=== PATIENT | female | born 1995 | race Caucasian/White ===

== ENCOUNTER 2023-05-06 04:37 | Outpatient (CLI) | payer BC, SELFPAY ==
[2023-05-06 16:47] LABS: Panorama Kit Sent via Fed Ex
[2023-05-06 16:50] LABS: Abs Immature Grans 0.02 10^3/uL (0.0-0.06); Absolute Basophil Count 0.01 10^3/uL (0.0-0.2); Absolute Eosinophil Count 0.15 10^3/uL (0.0-0.7); Absolute Lymphocyte Count 1.75 10^3/uL (1.2-3.4); Absolute Monocyte Count 0.32 10^3/uL (0.1-0.8); Absolute Neutrophil Count 3.94 10^3/uL (1.2-6.7); Basophils % 0.2; Eosinophils % 2.4; HCT 36.8 % (36.0-46.0); HGB 12.9 g/dL (11.2-15.7); Immature Grans % 0.3; Lymphocytes % 28.3; MCH 29.7 pg (27.0-33.0); MCHC 35.1 % (32.0-36.0); MCV 85 fL (80-95); MPV 8.9 fL (8.0-11.0); Monocytes % 5.2; Neutrophils % 63.6; Platelet Count 188 10^3/uL (130-400); RBC 4.34 10^6/uL (3.93-5.22); RDW 12.1 % (11.7-14.6); RDW-SD 37.4 fL; WBC 6.19 10^3/uL (4.4-10.8)
[2023-05-06 19:32] LABS: TSH (W/Ref FT4) 1.35 uIU/mL (0.36-3.74)
[2023-05-07 20:04] LABS: Hepatitis B Surface Ag Negative (Negative)
[2023-05-07 20:32] LABS: HIV-1/2 Ag & Ab Screen Negative (Negative)
[2023-05-07 20:34] LABS: Hepatitis C Ab w Rflx HCV PCR Negative (Negative)
[2023-05-10 11:00] LABS: Varicella IgG Antibody Positive (See Note)
[2023-05-10 11:02] LABS: Rubella IgG Ab (UVM) Positive (See Note)
[2023-05-10 20:08] LABS: Syphilis IgG w/Reflex Nonreactive (Nonreactive)
[2023-05-11 13:58] LABS: Specimen WB Whole Blood
[2023-05-17 12:32] LABS: Result Summary NEGATIVE; Specimen WB Whole Blood
== END 2023-05-06 04:38 | disposition home or self-care (01) ==
PROVIDERS: Advanced Practice Midwife; Visit Provider Advanced Practice Midwife
DX: Z34.91 Encounter for supervision of normal pregnancy, unspecified, first trimester; F41.9 Anxiety disorder, unspecified
CPT/HCPCS: 36415; 81220; 81222; 81329; 86787; 86803; 86850; 86900; 86901; 87340; 87389; 84443; 85025; 86762; 86780

== ENCOUNTER 2023-05-06 15:59 | Outpatient (REF) | payer BC, SELFPAY ==
[2023-05-06 19:23] LABS: *AMPHETAMINES SCREEN URINE Negative (Negative); *BARBITURATES SCREEN URINE Negative (Negative); *BENZODIAZEPINES SCREEN URINE Negative (Negative); Cannabinoids THC Negative (Negative); Cocaine Screen,Urine Negative (Negative); METHADONE URINE SCREEN Negative (Negative); OPIATES URINE SCREEN Negative (Negative)
[2023-05-06 19:24] LABS: Tricyclic Antidepressants Negative (Negative)
[2023-05-13 08:32] LABS: Buprenorphine Negative ng/mL (Cutoff: 5.0); Norbuprenorphine Negative ng/mL (Cutoff: 2.5)
== END 2023-05-06 16:00 | disposition home or self-care (01) ==
LOC: LBN 15:59
PROVIDERS: Visit Provider Advanced Practice Midwife
DX: Z34.91 Encounter for supervision of normal pregnancy, unspecified, first trimester (principal)
CPT/HCPCS: 80307; 80348; 87086

== ENCOUNTER → 2023-07-07 01:48 | Outpatient (CLI) | payer BC, SELFPAY ==
--- NOTE | 2023-07-07 07:45 | DI.US_ITS ---
Exam(s) US OB 2-3 TRIMESTER W MOD EXAM: US OB 2-3 TRIMESTER W MOD CLINICAL HISTORY: ,z34.90. TECHNIQUE: Transabdominal obstetrical ultrasound performed. COMPARISON: US US OB 1ST TRIMESTER from 05/12/2023 FINDINGS: Number of fetuses: One. position: Vertex. spine is anterior. Placental grade: 1 Placental location: Anterior no evidence of previa. BIOMETRIC DATA: BPD: 49mm = 20+ 6 weeks HC: 193mm = 21+4 weeks AC: 160mm = 21+1 weeks FL: 33mm = 20+ 3 weeks Cisterna Magna: 3 mm Cerebellum: 2 cm EFW: 381 grms 69% Composite Age: 21+ 0 weeks EDC by US: 17 November 2023 Heart Rate: 151BPM Amniotic fluid : Amount of fluid is within normal limits. ANATOMICAL SURVEY: Four-chambered heart: Unremarkable. LVOT: Unremarkable. RVOT: Unremarkable. Left-sided stomach: Unremarkable. urinary bladder: Unremarkable. Bilateral kidneys: Unremarkable. Three-vessel cord: Unremarkable. Cord insertion: Unremarkable. Posterior fossa:Unremarkable. ventricles: Unremarkable. nose: Unremarkable. lips: Unremarkable. palate: Unremarkable. spine: Suboptimal visualization of the cervical and thoracic region. Two arms and two legs: Unremarkable. IMPRESSION: 1. Single live intrauterine gestation with composite age 21+ 0 weeks. 2. Normal anatomic survey. Spine suboptimally visualized. The patient is scheduled to return for 13 June 2023 for additional spine imaging. DATA REPOSITORY:
== END ==
PROVIDERS: Visit Provider Advanced Practice Midwife
DX: Z34.92 Encounter for supervision of normal pregnancy, unspecified, second trimester (principal)
CPT/HCPCS: 76805

== ENCOUNTER 2023-09-02 05:02 | Outpatient (CLI) | payer BC, SELFPAY ==
[2023-09-02 10:19] LABS: HCT 35.9 % (36.0-46.0); HGB 12.3 g/dL (11.2-15.7); MCH 31.2 pg (27.0-33.0); MCHC 34.3 % (32.0-36.0); MCV 91 fL (80-95); MPV 9.1 fL (8.0-11.0); Platelet Count 171 10^3/uL (130-400); RBC 3.94 10^6/uL (3.93-5.22); RDW-SD 43.1 fL; WBC 7.91 10^3/uL (4.4-10.8)
[2023-09-02 10:26] LABS: Glucose,1 Hr (Glucola) 111 mg/dL (80-140)
== END 2023-09-02 05:03 | disposition home or self-care (01) ==
LOC: LBO 05:02
PROVIDERS: Visit Provider Advanced Practice Midwife
DX: Z34.91 Encounter for supervision of normal pregnancy, unspecified, first trimester (principal)
CPT/HCPCS: 36415; 82950; 85027

== ENCOUNTER 2023-10-03 10:11 | Outpatient (CLI) | payer BC, SELFPAY ==
[2023-10-03 10:22] VITALS: BP 106/52; PULSE 65; TEMP 36.6
[2023-10-03 10:37] VITALS: BP 106/52; PULSE 65
--- NOTE | 2023-10-03 11:21 | W.OBNST ---
Date of service: 10/03/23 Time of Service: 11:21 NST Evaluation Reason for NST Reasons for Nonstress Test: OTHER, SEE COMMENT Reason for NST Other: Well-being Gestational Age Gestational Age in Weeks and Days: 33 Weeks and 0Days Test and Monitor Explained Test/Monitor Explained: Test Explained, Monitor Explained and Patient Verbalized Understanding Vital Signs Blood Pressure: 106/52 Pulse: 65 Temperature: 97.9 F Urine Results Urine Protein: Negative Urine Ketones: Negative Urine Glucose: Negative Urine Blood: Negative NST Information Date on Monitor: 10/03/23 Time on Monitor: 10:38 Date off Monitor: 10/03/23 Time off Monitor: 11:05 Total Time on Monitor: 27 NST Interventions: PO Hydration Contraction Frequency: None NST Evaluation Patient States Movement: Present FHR Baseline: 125 Variability: Moderate 6-25 bpm Accelerations: 15x15 Decelerations: None NST Results: Reactive Note Ultrasound Done: N/A. NST Note Note: NST is reactive and reassuring. No evidence of PTL. discussed upper mid abdominal pain and diastasis. Self help measures discussed. to keep next scheduled or call CNM PRPrasad. SAMEER NST Reviewed and Verified by: Ciara Lee
[2023-10-03 11:22] VITALS: BP 106/52; PULSE 65; TEMP 36.6
== END 2023-10-03 11:10 ==
LOC: BCD 10:12 → OBS 10:18
PROVIDERS: PCP Advanced Practice Midwife; Visit Provider Advanced Practice Midwife
DX: O26.893 Other specified pregnancy related conditions, third trimester (principal); R10.9 Unspecified abdominal pain; Z3A.33 33 weeks gestation of pregnancy
CPT/HCPCS: 59025

== ENCOUNTER 2023-10-28 15:49 | Outpatient (REF) | payer BC, SELFPAY | END 2023-10-28 15:50 | disposition home or self-care (01) | LOC: LBN 15:49 | PROVIDERS: PCP Advanced Practice Midwife; Visit Provider Advanced Practice Midwife | DX: Z34.93 Encounter for supervision of normal pregnancy, unspecified, third trimester (principal); Z3A.36 36 weeks gestation of pregnancy | CPT/HCPCS: 87081 ==

== ENCOUNTER 2023-11-15 23:36 | Inpatient (IN) | payer BC, SELFPAY ==
[2023-11-15 22:20] VITALS: BP 108/66; PULSE 65; TEMP 36.7
[2023-11-15 22:21] VITALS: BP 108/66; PULSE 65; TEMP 36.7
[2023-11-15] MEDS: Lactated Ringers 500 ML 1000 ML IV (22:45)
--- NOTE | 2023-11-15 23:39 | HPE_ITS ---
Date of service: 11/15/23 Time of Service: 23:40 Assessment and Plan Assessment and plan (1) Spontaneous onset of labor: Status: Acute Assessment and plan: Admit to the Center. Comfort measures. Lacy is receiving support from her . She is planning to have a tech writer for support in labor. Anticipate . OB-HPI Labor/Delivery History of Present Illness Reason for Visit: NST Chief Complaint: Uterine Contractions (vomiting). KUMAR Calculator Estimated Delivery Date Method Current WG Current Estimate 11/21/23 LMP (Certain) 39w 1d Other Estimates 11/18/23 Ultrasound #1 39w 4d Comments: Lacy reports strong regular contractions at home. 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 Anxiety- attends therapy. No medications currently, TSH=nml 2. Exercise induced Asthma- uses inhaler occasional 3. Panorama: low risk x5 male , CF & SMA- neg 4. Constipation in the morning, loose stools x3. was taking benefiber daily, switched to psyllium PRN. Colace recommended daily. 5. Hemorrhoids - used preparation H cream. Assessment: History Reviewed & Current [facility] All Active Problems (Updated 11/15/23 @ 23:44 by Ciara Franklin CNM) Spontaneous onset of labor (Acute) Hemorrhoids during (Acute) Pelvic floor weakness in female (Acute) Pelvic pain (Acute) (Acute) Delayed menses (Acute) Asthma (Chronic) exercise induced Medical History Anxiety Sees counselor regularly, no meds Surgical History History of ankle surgery S/p injury 02/2019 [facility] [place] Revision 05/01/22 Ricky Family History (Updated 05/06/23 @ 15:23 by Ciara Franklin CNM) Father Cancer bladder Skin cancer Parkinson disease Menieres disease Afib Mother Heart disease ? arrhythmia Paternal Grandmother Thyroid disease Osteoporosis Brother Asthma Social History Smoking/Tobacco Use Status: Never Smoking risk assessment performed?: Yes Alcohol Intake: current Alcohol Intake frequency: a few times a week Drug use: Rarely Substance use type: marijuana current occupation: environmental [employer] Sexually active: Yes Do you think of yourself as: straight/heterosexual Current gender identity: female Female Reproductive History Menstrual control method: none History History 1 Para 0 Hx # Term Pregnancies 0 Multiple births 0 Hx # Pregnancies 0 Ectopic pregnancies 0 AB induced 0 Hx Number of Living Children 0 AB spontaneous 0 Meds Allergies and Home Medications Allergies Allergy/AdvReac Type Severity Reaction Status Date / Time hydromorphone AdvReac Other (See Unverified 11/10/23 16:00 Comment) Home Medications Medication Instructions Recorded Confirmed Type albuterol sulfate 90 mcg/actuation 2 puff inhalation Q6H PRN 07/13/22 11/10/23 History aerosol inhaler cetirizine 10 mg capsule (Zyrtec) 10 mg PO DAILY PRN 07/13/22 11/10/23 History vits no.126-ferrous fum tab PO QDAY 03/24/23 11/10/23 History 28 mg iron-folic acid 800 mcg tablet (Classic ) calcium carbonate 500 mg PO BID PRN 09/02/23 11/10/23 History witch sanjuana 50 % topical pads 1 pad topical 4-6XD PRN skin 10/21/23 11/10/23 Rx (Tucks (witch sanjuana)) irritation #100 ea docusate sodium 100 mg capsule 100 mg PO DAILY 11/05/23 11/10/23 History (Colace) Exam Physical Exam Vital signs: Temp Pulse BP 98.0 F 65 108/66 11/15/23 22:21 11/15/23 22:21 11/15/23 22:21 Vital Signs Reviewed: Yes Constitutional Constitutional: no acute distress Detailed Labor and Delivery Exam Dilation: 2 Effacement (%): 70 station: -1 Cervix position: anterior Consistency: soft Reis Score: Cervical Points Exam 0 1 2 3 Dilation Closed 1-2cm 3-4 cm 5-6cm Effacement 0-30% 40-50% 60-70% 80% Consistency Firm Medium Soft Station -3 -2 -1,0 +1,+2 Position Posterior Mid Anterior Amniotic Membrane Status: Intact Monitor Mode: External Contraction Frequency(min): every 3-4 Contraction Duration(sec): 60 Contraction Intensity: Moderate/Strong Fetus A Heart Rate Baseline: 132 Monitor Accelerations: 15 X 15 Monitor Decelerations: None Variability: Moderate (6-25 BPM) Presentation: Cephalic Categories: Category I HEENT Exam HEENT Exam: Normal Respiratory Exam Respiratory Exam: Normal Cardiovascular Exam Cardiovascular Exam: Normal Abdominal Exam Abdominal Exam: Normal Exam Exam: Normal Extremities Exam Extremities Exam: Normal Skin Exam Skin Exam: Normal Psychiatric Exam Psychiatric Exam: Normal Risk Assessment Risk for Shoulder Dystocia Historical/Initial OB: NEGATIVE FOR: Pelvic Abnormality, Pre- BMI>30, Previous Shoulder Dystocia or Previous Macrosomia 36 Weeks: NEGATIVE FOR: Current Gestational DM, EFW>4500gms or Maternal Weight Gain>40lbs 40 Weeks: NEGATIVE FOR: EFW> 4500 gms, Maternal Weight Gain >40lb or Post Dates Risk for Pre-Eclampsia Yes, if one or more: NEGATIVE FOR: Hx Pre-E/Gest HTN, Chronic HTN, Multiple Gestation, Pre-gestational DM, Renal Disease, Systemic Lupus or APA Syndrome Yes, if 2 or more: POSITIVE FOR: Nulliparity; NEGATIVE FOR: Age>= 35 yrs, >10yr btwn pregnancies, BMI>30, ethinicty, Mother/Sister w/ Pre-E or Previous IUGR Risk for Post- Hemorrhage Initial: NEGATIVE FOR: Multiple Gestation, Previous PPH, Known Clotting Deficiency, Grand Multiparity or Anticoagulation 36 Weeks: NEGATIVE FOR: Anemia, hgb<10, Low platelets(thrombocytopenia), Gestational HTN or Pre-E, Polyhydraminios or EFW>4500gms 40 Weeks: NEGATIVE FOR: Anemia, hgb<10, Low platelets (thrombocytopenia), Gestation HTN or Pre-E, Polyhydraminios or EFW>4500gms Counseled re: Active Management: Yes Risks Reviewed Risks Reviewed Upon Admission: Yes
--- NOTE | 2023-11-15 23:58 | PDOC.NST_ITS ---
Date of service: 11/15/23 Time of Service: 23:58 NST Evaluation Reason for NST Reasons for Nonstress Test: OTHER, SEE COMMENT Reason for NST Other: Rule out labor Gestational Age Gestational Age in Weeks and Days: 39 Weeks and 2Days Test and Monitor Explained Test/Monitor Explained: Test Explained, Monitor Explained and Patient Verbalized Understanding Vital Signs Blood Pressure: 108/66 Pulse: 65 Temperature: 98.0 F NST Information Date on Monitor: 11/15/23 Time on Monitor: 22:19 Date off Monitor: 11/15/23 Time off Monitor: 22:55 Total Time on Monitor: 36 NST Interventions: None NST Evaluation Patient States Movement: Present FHR Baseline: 120 Variability: Moderate 6-25 bpm Accelerations: 15x15 Decelerations: None NST Results: Reactive Note Ultrasound Done: N/A. NST Note Note: Lacy is at the Center for rule out labor. SVE by RN and she was 2 /70/- 1. Lacy was offered options to stay and await active labor or to return home. She chose to stay as she stated that the transitions between hospital and home were difficult for her. Rest was encouraged and medications for therapeutic rest were also offered. She prefers to try to rest on her own and she was admitted . NST Reviewed and Verified by: Ciara Franklin
[2023-11-16] VITALS (21 sets, daily range): BP systolic 95–127; BP diastolic 56–78; PULSE 53–86; RESP 15–16; TEMP 36.2–37.1; O2SAT 97–98
[2023-11-16 00:02] LABS: HCT 46.6 % (36.0-46.0); HGB 16.1 g/dL (11.2-15.7); MCH 31.8 pg (27.0-33.0); MCHC 34.5 % (32.0-36.0); MCV 92 fL (80-95); MPV 10.3 fL (8.0-11.0); Platelet Count 175 10^3/uL (130-400); RBC 5.07 10^6/uL (3.93-5.22); RDW 13.2 % (11.7-14.6); RDW-SD 43.8 fL; WBC 11.87 10^3/uL (4.4-10.8)
[2023-11-16] MEDS: Ondansetron O.D.T. 4 MG TABEF 8 MG PO (00:25)
--- NOTE | 2023-11-16 06:15 | W.PM.OBNL1 ---
Date of service: 11/16/23 Time of Service: 06:15 Pelvic Exam Dilation: 7 Effacement (%): 100 station: +1 Cervix Position: mid Consistency: soft Vaginal Exam Presentation: Cephalic Contractions Monitor Mode: External Contraction Frequency(min): every 3-4 Contraction Duration(sec): 60 Intensity: Strong Fetus A Monitor: Doppler Heart Rate Baseline: 120 FHR Rhythm: Regular Decelerations: None Amniotic Membrane Status: Intact Assessment and Plan Assessment and plan (1) Spontaneous onset of labor: Status: Acute Assessment and plan: Assisted to hands and knees position on the ball. Lcay is beginning to feel slight rectal pressure. I have explained to her the importance of auscultation with a contraction and she has agreed after this was explained. Anticipate . Objective Abnormal lab results 11/15/23 Range/Units 23:52 WBC 11.87 H (4.4-10.8) 10^3/uL Hgb 16.1 H (11.2-15.7) g/dL Hct 46.6 H (36.0-46.0) % Temp Pulse BP 98.8 F 85 127/78 11/16/23 04:46 11/16/23 04:46 11/16/23 04:46 Laboratory Results WBC 11.87 10^3/uL (4.4-10.8) H 11/15/23 23:52 RBC 5.07 10^6/uL (3.93-5.22) 11/15/23 23:52 Hgb 16.1 g/dL (11.2-15.7) H 11/15/23 23:52 Hct 46.6 % (36.0-46.0) H 11/15/23 23:52 MCV 92 fL (80-95) 11/15/23 23:52 MCH 31.8 pg (27.0-33.0) 11/15/23 23:52 MCHC 34.5 % (32.0-36.0) 11/15/23 23:52 RDW 13.2 % (11.7-14.6) 11/15/23 23:52 Plt Count 175 10^3/uL (130-400) 11/15/23 23:52 MPV 10.3 fL (8.0-11.0) 06/17/24 23:52 ABO/Rh O Positive 11/15/23 23:52 Antibody Screen NEGATIVE 11/15/23 23:52 Subjective Patient Reports: New Complaints Interval history since last seen: Lacy is feeling very tired. She has been ambulating in her room assisted by her liliana Bonnie and her , Kit. She received zofran 8 mg ODT for vomiting with good effect and she agreed to an saline lock and was given an IV bolus of LR 1000cc for hydration. The baby has been assessed by doppler auscultation. On severeal occasions, she has declined auscultation stating that she did not like the aquasonic gel and she did not wish to have the heart auscultated unless it was necessary. Results Hemoglobin/Hematocrit: Hgb 16.1 g/dL (11.2-15.7) H 11/15/23 23:52 Hct 46.6 % (36.0-46.0) H 11/15/23 23:52 Abnormal Lab Findings: Abnormal Labs 11/15/23 23:52 WBC 11.87 H Hgb 16.1 H Hct 46.6 H
[2023-11-16] MEDS: Oxytocin 10 UNITS/ML VIAL IM (09:49)
--- NOTE | 2023-11-16 10:29 | W.OBDELIVERY ---
Date of service: 11/16/23 Time of Service: 10:30 OB Labor/ Delivery Information Baby A Delivery Delivery Method: Spontaneaous Presentation: Cephalic Vertex Position: Right Occipital Anterior Cord Description-Baby A: 3 Vessels Amniotic Fluid: Clear Estimated Blood Loss: 250 Delivery Outcome: Liveborn Transferred: Remains with Mother Note: FHTs 120 by doppler during first stage of labor. FHTs 120 by doppler in second stage. Progressed to full dilation and began pushing. Second stage huddle was done. Spontaneous delivery of male infant delivered in WARD position. Baby was placed on mother's abdomen and dried and stimulated. Spontaneous cry. Cord was clamped and cut by th Theresa. The placenta delivered spontaneously and appears to by intact with a three vessel cord. Pitocin 10 units IM was administered after delivery of the placenta. The perineum was inspected and a second degree laceration was repaired. The baby did breastfeed. After delivery, Mother and baby and father of the baby were stable and bonding well in the delivery room and there were no complications. Providers Nurse Bottoming Room Supervisor: Ciara Franklin Nurse: Liya Butts Nurse: Shea Trevino Labor/Delivery Information Number of Babies in Womb: 1 Steroids Given: None Reason Steroids Not Administered: N/A Group Beta Strep: Negative Antibiotics Administered: No Rubella Status: Immune Blood Type: O+ Varicella Immunity: Immune Born En Route: No Maternal Complications: None Shoulder Dystocia: No Stages of Labor Onset of Labor Date: 11/15/23 Complete Dilatation Date: 11/16/23 Complete Dilatation Time: 08:33 ROM Baby A: 11/16/23 ROM Baby A: 09:28 ROM Total Time- Baby A: [id number] Infant Delivery Date-Baby A: 11/16/23 Infant Delivery Time-Baby A: 09:43 Labor Stage 2 Duration: 1 hours and 10 minutes Placenta Delivery Date-Baby A: 11/16/23 Placenta Delivery Time-Baby A: 09:51 Labor-Stage 3 Duration: 8 minutes Placenta Cultured: No Placenta Status: Delivered Baby A Infant Gender: Male Gestational Status: Term (39-41.6 wks) Gestational Age in Weeks/Days: 39 Weeks and 3 Days Score-1 Minute Interval(Baby A) Heart Rate-1 minute: 100 BPM or Greater Respiratory Effort- 1 minute: Spontaneous/Strong Cry Muscle Tone-1 minute: Active Movement Reflex Response-1 minute: Prompt Response Color-1 minute: Bluish Hands or Feet Total Score-1 minute: 9 Score-5 Minute Interval(Baby A) Heart Rate- 5 minute: 100 BPM or Greater Respiratory Effort-5 minute: Spontaneous/Strong Cry Muscle Tone-5 minute: Active Movement Reflex Response-5 minute: Prompt Response Color-5 minute: Bluish Hands or Feet Total Score- 5 minute: 9 Interventions Repair of Laceration Type: Perineal, Laceration Extension: Second Degree. Sponge Count Correct: No Sponges Placed in Vagina, Sharp Count Correct: Yes. Laceration Repair Note: bilateral periurethral lacerations not repaired and not bleeding
[2023-11-16] MEDS: Dibucaine 1% 28 GM TUBE TP (12:31)
[2023-11-16] MEDS: Ibuprofen 600 MG TAB PO ×2 (12:31→18:17)
[2023-11-16] MEDS: Hamamelis Leaf/Glycerin 100 EACH BOX PR (12:32)
[2023-11-16] MEDS: Docusate Sodium 100 MG CAP PO (18:17)
[2023-11-17] MEDS: Ibuprofen 600 MG TAB PO (00:49)
--- NOTE | 2023-11-17 07:43 | OBPPV_ITS ---
Date of service: 11/17/23 Time of Service: 07:43 Assessment and Plan Assessment and plan (1) Term delivered: Status: Acute Assessment and plan: A: PPD#1, nml recovery, pleased with experience overall off to a good start P: Desires discharge today Plans IUD insertion at 6-8 wks PP Written instructions reviewed and given to tp F/up at 2 & 6 wks Subjective Subjective Patient comments: No complaints, Pain well controlled, Tolerating diet and Flatus present Patient's Mood: tired, happy [place] baby status: Doing well, Nursing well, Rooming in and Strong Bonding Observed [place] feeding status: Exclusively breast feeding Exam Physical Exam Vital signs: Temp Pulse Resp BP Pulse Ox 97.9 F 62 16 95/56 L 97 11/16/23 21:45 11/16/23 21:45 11/16/23 21:45 11/16/23 21:45 11/16/23 21:45 Vital Signs Reviewed: Yes Constitutional Constitutional: no acute distress, average body habitus and cooperative HEENT Exam HEENT Exam: Normal Neck Exam Neck Exam: Normal Breast Exam Bilateral: Breast Exam: Normal and Soft Nipple Exam: Normal, Uninjured and Other (sore) Respiratory Exam Respiratory Exam: Normal Cardiovascular Exam Cardiovascular Exam: Normal Abdominal Exam Abdomen: Other (soft, nontender) Fundal Exam Fundus: Below Umbilicus and Firm Rectal Exam Rectal Exam: Normal Exam Perineum: Repair Intact Extremities Exam Extremity Exam: Normal, Full ROM, Normal Capillary Refill and Warm to Touch Back/Spine/Pelvis Exam Back Exam: Normal Skin Exam Skin Exam: Normal Neurological Exam Neurological Exam: Normal Psychiatric Exam Psychiatric Exam: Normal
[2023-11-17 09:00] VITALS: BP 106/71; PULSE 66; RESP 16; TEMP 36.6; O2SAT 98
[2023-11-17] MEDS: Docusate Sodium 100 MG CAP PO (09:30)
--- NOTE | 2023-11-17 10:32 | DSE_ITS ---
Date of service: 11/17/23 Time of Service: 10:32 DS: Diagnosis Discharge Diagnosis (1) Term delivered: Status: Acute Discharge Plan Disposition Patient Disposition: Home Condition: Good Discharge Details Reason For Visit: Labor Admit Date/Time: 11/15/23 23:36 Admit Provider: Ciara Franklin Attending Provider: Ciaar Franklin Primary Care Provider: Ciara Lee Hospital Course Hospital Course: Admitted in spontaneous labor, , nml course Home Meds and New Rx's Prescriptions: No Action albuterol sulfate 90 mcg/actuation HFA aerosol inhaler 2 puff inhalation Q6H PRN Zyrtec 10 mg capsule 10 mg PO DAILY PRN Classic 28 mg iron- 800 mcg tablet 1 tab PO QDAY PRN calcium carbonate 500 mg calcium (1,250 mg) tablet,chewable 500 mg PO BID PRN docusate sodium [Colace] 100 mg capsule 100 mg PO DAILY Tucks (witch sanjuana) 50 % pads, medicated 1 pad topical 4-6XD PRN (Reason: skin irritation) Qty: 100 0RF Discharge Instructions Additional Instructions: Please keep 2 and 6 wk appointments with the post tensioning ironworker, call for any and all concerns. Stand Alone Forms: BC Instructions, BC Post Vaginal Deliver Activity:: Activity as Tolerated Equipment/Supplies:: No Equipment Needed Diet:: Normal Diet OB:DS Summary Summary Vaginal Delivery Method: Spontaneaous Laceration Description: Perineal Laceration Extension: Second Degree Contraception Discussed Contraception Discussed: Yes Contraceptive Plan: IUD and Foam/Condoms, [place] Infant Gender-Baby A: Male weight: 7 lb 9.695 oz Status at Discharge Functional status at discharge: independent ambulation Overall status at discharge: patient is progressing back to baseline Mental Status: mental status grossly normal Speech and Movement: speech and movement normal and speech clear Mood: congruent mood Affect: normal affect Quality:SDOH Health Related Social Needs: No Data to Display Exam Physical Exam Vital signs: Temp Pulse Resp BP Pulse Ox 97.9 F 66 16 106/71 98 11/17/23 09:00 11/17/23 09:00 11/17/23 09:00 11/17/23 09:00 11/17/23 09:00 Constitutional Constitutional: no acute distress, average body habitus and cooperative HEENT Exam HEENT Exam: Normal Neck Exam Neck Exam: Normal Breast Exam Bilateral: Breast Exam: Normal and Soft Respiratory Exam Respiratory Exam: Normal Cardiovascular Exam Cardiovascular Exam: Normal Abdominal Exam Abdomen: Other (soft, nontender) Fundal Exam Fundus: Below Umbilicus and Firm Rectal Exam Rectal Exam: Normal Exam Perineum: Repair Intact Extremities Exam Extremity Exam: Normal, Full ROM, Normal Capillary Refill and Warm to Touch Back/Spine/Pelvis Exam Back Exam: Normal Skin Exam Skin Exam: Normal Neurological Exam Neurological Exam: Normal Psychiatric Exam Psychiatric Exam: Normal PFSH All Active Problems (Updated 11/17/23 @ 07:42 by Mini Brandt) Care and examination of lactating mother (Acute) Anxiety (Chronic) Sees counselor regularly, no meds Term delivered (Acute) Hemorrhoids during (Acute) Pelvic floor weakness in female (Acute) Pelvic pain (Acute) Asthma (Chronic) exercise induced Medical History (Updated 11/17/23 @ 07:42 by Mini Brandt) Delayed menses Spontaneous onset of labor Surgical History History of ankle surgery S/p injury [place] [facility] [place] 05/01/22 Ricky Family History (Updated 05/06/23 @ 15:23 by Ciara Franklin CNM) Father Cancer bladder Skin cancer Parkinson disease Menieres disease Afib Mother Heart disease ? arrhythmia Paternal Grandmother Thyroid disease Osteoporosis Brother Asthma Social History Smoking/Tobacco Use Status: Never Smoking risk assessment performed?: Yes Alcohol Intake: current Alcohol Intake frequency: a few times a week Drug use: Rarely Substance use type: marijuana Housing: house current occupation: environmental [employer] Sexually active: Yes Do you think of yourself as: straight/heterosexual Current gender identity: female Do you feel safe at home: Yes Do you feel safe in your relationship?: Yes Female Reproductive History Menstrual control method: none History History 1 Para 0 Hx # Term Pregnancies 0 Multiple births 0 Hx # Pregnancies 0 Ectopic pregnancies 0 AB induced 0 Hx Number of Living Children 0 AB spontaneous 0 DS: Data Vitals/I&O Vitals and I&O: Vital Signs Temperature 97.9 F 11/17/23 09:00 Temperature 98.0 F 11/16/23 00:01 Temperature Source Oral 11/17/23 09:00 Pulse 66 11/17/23 09:00 Pulse 65 11/16/23 00:01 Pulse Rhythm Regular 11/17/23 09:00 Respiratory Rate 16 11/17/23 09:00 Respiratory Depth Normal 11/16/23 21:45 Blood Pressure 106/71 11/17/23 09:00 Blood Pressure 108/66 11/16/23 00:01 Blood Pressure Mean 82 11/17/23 09:00 Pulse Oximetry 98 11/17/23 09:00 Oxygen Delivery Method Room Air 11/16/23 00:11 Oxygen Flow Rate 0 11/16/23 00:11 Pain Level 3 11/17/23 00:49 Intake & Output 11/16/23 11/16/23 11/17/23 11:59 23:59 11:59 Intake Total 500 / 500 Output Total 1150 / 1150 Balance 500 / -650 -1150 / -650 Weight 180 lb Intake: IV 500 / 500 Output: Urine 1150 / 1150 Other: Urine Color Yellow Yellow Hendrickson Urine Odor None Voiding Methods Toilet
== END 2023-11-17 14:55 | disposition home or self-care (01) | DRG 806 ==
LOC: BCD 23:45 → OBS 23:45
PROVIDERS: Admitting Provider Advanced Practice Midwife; PCP Advanced Practice Midwife; Visit Provider Advanced Practice Midwife
DX: O22.43 Hemorrhoids in pregnancy, third trimester; Z37.0 Single live birth; O99.344 Other mental disorders complicating childbirth; O70.1 Second degree perineal laceration during delivery; F41.9 Anxiety disorder, unspecified; O99.52 Diseases of the respiratory system complicating childbirth; O99.62 Diseases of the digestive system complicating childbirth; Z3A.39 39 weeks gestation of pregnancy; K59.00 Constipation, unspecified; J45.990 Exercise induced bronchospasm
CPT/HCPCS: 36415; 85027; 86850; 86900; 86901; J2590

== ENCOUNTER 2024-02-08 11:30 | Outpatient (REF) | payer BC, SELFPAY ==
--- NOTE | 2024-02-08 11:30 | PAPFT_PTH ---
PATIENT: Lacy Stuart LOC: [facility] U#:[id number] AGE/SX: 28/F ROOM: RE02/08/[address]: Ciara Franklin : 1995 BED: DIS: 02/08/2024 SPEC #: [id number] RECD: 02/08/24 13:00 STATUS: ALPHONSO RETiffani #: [id number] ELAINA: 02/08/24 11:[address]: Ciara Franklin DEPT: [facility] Cytology RECD BY: Reina Dobbs ENTERED: 02/08/24 13:01 SP TYPE: PAPFT OTHR DR: Ciara Lee CNM Tissues: 1 - CX/ENDOCX FOR PAP SMEARS Procedures: PAP THIN PREP/[facility] Screening HPV DNA PROBE Comments: [id number] (HPV 16 & 18/45)
== END 2024-02-08 11:31 | disposition home or self-care (01) ==
LOC: LBN 11:30
PROVIDERS: PCP Advanced Practice Midwife; Visit Provider Advanced Practice Midwife
DX: Z30.431 Encounter for routine checking of intrauterine contraceptive device (principal)
CPT/HCPCS: 88142; 87624

== ENCOUNTER 2024-02-28 14:34 | Emergency (ER) | payer BC, SELFPAY ==
[2024-02-28 14:40] VITALS: BP 117/79; PULSE 79; RESP 16; TEMP 36.6; O2SAT 96
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
[2024-02-28 17:29] VITALS: BP 95/64; PULSE 70; RESP 12; O2SAT 98
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
== END 2024-02-28 17:35 | disposition home or self-care (01) ==
LOC: ER 17:11 → RED 17:35
PROVIDERS: Emergency Provider Nurse Practitioner Family; PCP Advanced Practice Midwife
DX: S62.164A Nondisplaced fracture of pisiform, right wrist, initial encounter for closed fracture (principal); S52.134A Nondisplaced fracture of neck of right radius, initial encounter for closed fracture; V18.4XXA Pedal cycle driver injured in noncollision transport accident in traffic accident, initial encounter; Y92.488 Other paved roadways as the place of occurrence of the external cause; Y93.55 Activity, bike riding
CPT/HCPCS: 81025; 99285; 73090; 73110; 73200; 99284

== ENCOUNTER 2024-03-13 15:37 | Outpatient (CLI) | payer BC, SELFPAY ==
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
== END 2024-03-13 15:38 | disposition home or self-care (01) ==
LOC: DIORS 15:37
PROVIDERS: Visit Provider Student in an Organized Health Care Education/Training Program
DX: S52.134D Nondisplaced fracture of neck of right radius, subsequent encounter for closed fracture with routine healing (principal); S62.164D Nondisplaced fracture of pisiform, right wrist, subsequent encounter for fracture with routine healing; X58.XXXD Exposure to other specified factors, subsequent encounter
CPT/HCPCS: 73080; 73110

== ENCOUNTER 2024-04-17 15:47 | Outpatient (CLI) | payer BC, SELFPAY ==
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
== END 2024-04-17 15:48 | disposition home or self-care (01) ==
LOC: DIORS 15:47
PROVIDERS: Visit Provider Student in an Organized Health Care Education/Training Program
DX: S62.164D Nondisplaced fracture of pisiform, right wrist, subsequent encounter for fracture with routine healing (principal); S52.134D Nondisplaced fracture of neck of right radius, subsequent encounter for closed fracture with routine healing; X58.XXXD Exposure to other specified factors, subsequent encounter
CPT/HCPCS: 73080; 73110